=== PATIENT | female | born 1935 | race Caucasian/White ===

== ENCOUNTER 2025-01-31 23:06 | Emergency (ER) | payer OTHER, MEDICARE ==
[2025-01-31 23:11] VITALS: BP 160/83; PULSE 82; RESP 20; TEMP 97.3; BMI 25.2
[2025-01-31] MEDS ORDERED: ACETAMINOPHEN 325 MG TABLET (FP) ONE (23:48)
[2025-01-31] MEDS: ACETAMINOPHEN 325 MG TABLET (FP) PO ONE (23:53)
[2025-02-01] MEDS ORDERED: IBUPROFEN 400 MG TABLET (FP) PO ONE (01:11)
[2025-02-01] MEDS: IBUPROFEN 400 MG TABLET (FP) PO ONE (01:15)
[2025-02-01] MEDS ORDERED: ACETAMINOPHEN W/ CODEINE LIQ 5 ML CUP ONE (02:06)
[2025-02-01] MEDS: ACETAMINOPHEN WITH CODEINE 300MG/30MG TABLET PO ONE (02:11)
== END 2025-02-01 02:12 | disposition home or self-care (01) ==
LOC: JER 23:06
PROC: 2W3AX1Z Immobilization of Right Upper Arm using Splint (ICD-10-PCS; principal; 2025-01-31)
DX: S52.021A Displaced fracture of olecranon process without intraarticular extension of right ulna, initial encounter for closed fracture (principal); W10.8XXA Fall (on) (from) other stairs and steps, initial encounter
CPT/HCPCS: 73030-TC-RT-FY; 73060-TC-RT-FY; 73070-TC-RT-FY; 73090-TC-RT-FY; 73200-TC-RT; 99284-25